=== PATIENT | female | born 1985 | race Two or more races ===

== ENCOUNTER 2016-12-23 17:07 | Emergency (ER) | payer OTHER ==
[~2016-12-23] VITALS: Ht 157.5 cm; Wt 52.2 kg
[2016-12-23 17:20] VITALS: BP 136/94
--- NOTE | 2016-12-23 17:51 | Emergency Room Report ---
History of Present Illness General Chief Complaint: Skin Rash/Abscess Source: Patient Present Illness HPI 31-year-old female presents emergency department complaining of painful lesion that she states is 8/10 in severity located in the left groin area x3 days. Patient also reports tender lymph nodes. Patient denies fevers or chills. Patient states she was seen by her ICT PROJECT MANAGER who referred her to come to ER for evaluation. Patient states initially she had some itching/burning sensation and she noticed small lesion she can't recall if it was blistering, vesicular or tender nodule. Patient denies vaginal discharge she denies history of STI or herpes. States her ICT PROJECT MANAGER did GNC culture today. Denies joint pain, abdominal pain, other lesions, dysuria or hematuria. pt. denies and states she is lesbian. Denies CP, Palpitations, LOC, AMS, dizziness, Changes in Vision, Sensation, paresthesias, or a sudden severe headache. Allergies: Coded Allergies: No Known Allergies (Unverified , 12/23/16) Patient History Past Medical History: see triage record Past Surgical History: none Pertinent Family History: none Now: No Reviewed Nursing Documentation: PMH: Agreed, PSxH: Agreed Nursing Documentation-PMH Past Medical History: No Stated History Review of Systems All Other Systems: negative except mentioned in HPI Physical Exam Vital Signs Date Time Temp Pulse Resp B/P Pulse Ox O2 Delivery O2 Flow Rate FiO2 12/23/16 17:15 98.2 87 20 136/94 100 Room Air Sp02 EP Interpretation: reviewed, normal General Appearance: no apparent distress, alert, GCS 15, non-toxic Head: normocephalic, atraumatic Eyes: bilateral eye PERRL, bilateral eye normal inspection ENT: hearing grossly normal, normal pharynx, no angioedema, normal voice Neck: full range of motion, supple/symm/no masses Respiratory: lungs clear, normal breath sounds, speaking full sentences Cardiovascular #1: regular rate, rhythm, no edema Gastrointestinal: normal bowel sounds, non tender, soft, no guarding, no rebound Rectal: deferred Musculoskeletal: back normal, gait/station normal, normal range of motion, non- tender Neurologic: alert, oriented x3, responsive, motor strength/tone normal, sensory intact, speech normal Psychiatric: judgement/insight normal, memory normal, mood/affect normal Skin: normal color, warm/dry, well hydrated, other - well-defined circular lesions that have ulcered and coalesced on the lateral upper left external labia with surrounding erythema, tender swollen palpable LAD of the left inguinal nodes, no palpable fluctuance, induration or fistula. Lymphatic: inguinal node tender (L) Medical Decision Making PA Attestation Dr. Ramos is my supervising Physician whom patient management has been discussed with. Diagnostic Impression: Primary Impression: Skin infection, bacterial Additional Impression: Genital ulcer, female ER Course 31-year-old female presents emergency department complaining of painful lesion that she states is 8/10 in severity located in the left groin area x3 days. Patient also reports tender lymph nodes. Patient denies fevers or chills. Patient states she was seen by her ICT PROJECT MANAGER who referred her to come to ER for evaluation. Patient states initially she had some itching/burning sensation and she noticed small lesion she can't recall if it was blistering, vesicular or tender nodule. Patient denies vaginal discharge she denies history of STI. States her ICT PROJECT MANAGER did GNC culture today. Denies joint pain, abdominal pain, other lesions, dysuria or hematuria. pt. denies and states she is lesbian. Denies CP, Palpitations, LOC, AMS, dizziness, Changes in Vision, Sensation, paresthesias, or a sudden severe headache. Ddx considered but are not limited to cellulitis, herpes, LGV, folliculitis Vital signs: are WNL, pt. is afebrile H&PE are most consistent with vesicular eruption with secondary bacterial infection. well-defined circular lesions that have ulcered and coalesced on the lateral upper left external labia with surrounding erythema, tender swollen palpable LAD of the left inguinal nodes, no palpable fluctuance, induration or fistula. ORDERS: none required at this time, the diagnosis is clinical ED INTERVENTIONS: None required at this time. Pt. is very adamant that she is negative for G & C, I will be covering for LGV and staph infection. - D/w pt. that she will be treated with anti-virals and abx, and to follow up with OBGYN, return with worsening of symptoms or new symptoms. DISCHARGE: At this time pt. is stable for d/c to home. Will provide printed patient care instructions, and any necessary prescriptions. Care plan and follow up instructions have been discussed with the patient prior to discharge. Last Vital Signs Date Time Temp Pulse Resp B/P Pulse Ox O2 Delivery O2 Flow Rate FiO2 12/23/16 17:20 98.2 87 20 136/94 100 Room Air Disposition: HOME, SELF-CARE Condition: Stable Scripts Ibuprofen* (MOTRIN*) 600 Mg Tablet 600 MG ORAL THREE TIMES A DAY, #20 TAB 0 Refills Prov: Shari Balderas 12/23/16 Valacyclovir Hcl* (VALTREX*) 500 Mg Tablet 1000 MG ORAL TWICE A DAY for 7 Days, #14 TAB Prov: Shari Balderas.A. 12/23/16 Doxycycline Hyclate* (VIBRAMYCIN*) 100 Mg Capsule 100 MG ORAL EVERY 12 HOURS for 7 Days, #14 CAP 0 Refills Prov: Shari Balderas 12/23/16 Patient Instructions: Cellulitis, [id number], Lymphadenopathy Additional Instructions: Take medications as directed. Follow up with PCP in 3-5 days, recommend viral testing * You are being treated with an antibiotic that covers both staph infections and LGV * Return sooner to ED if new symptoms occur, or current symptoms become worse. - Please note that this Emergency Department Report was dictated using [employer] hana developer technology software, occasionally this can lead to erroneous entry secondary to interpretation by the dictation equipment. Shari Balderas Dec 23, 2016 17:51
[2016-12-23] MEDS ORDERED: VIBRAMYCIN100 MG ORAL (17:54)
[2016-12-23] MEDS ORDERED: VALACYCLOVIR500 MG ORAL (17:54)
[2016-12-23] MEDS ORDERED: IBUPROFEN600 MG ORAL (17:54)
[2016-12-23 17:59] VITALS: BP 136/94
== END 2016-12-23 18:00 | disposition home or self-care (01) ==
LOC: EMR 17:45
DX: L08.9 Local infection of the skin and subcutaneous tissue, unspecified (principal); B96.89 Other specified bacterial agents as the cause of diseases classified elsewhere; L98.499 Non-pressure chronic ulcer of skin of other sites with unspecified severity
CPT/HCPCS: 99284